=== PATIENT | female | born 1985 | race American Indian/Alaskan Native ===

== ENCOUNTER 2016-11-18 10:58 | Emergency (ER) | payer MEDICAID ==
[2016-11-18 12:08] VITALS: BP 135/90
--- NOTE | 2016-11-20 00:59 | ED Elopement Review ---
ED Pt Elopement review - Call Back decision Pt Call Back Decision: Pt to F/U with PMD
== END 2016-11-18 22:10 | disposition left against medical advice (07) ==
LOC: ED 10:58
DX: R10.9 Unspecified abdominal pain (principal); R11.2 Nausea with vomiting, unspecified; R19.7 Diarrhea, unspecified; Z53.21 Procedure and treatment not carried out due to patient leaving prior to being seen by health care provider

== ENCOUNTER 2017-05-11 10:24 | Emergency (ER) | payer MEDICAID ==
[2017-05-11 11:06] LABS: Eosinophils % (Auto) 0.6 % (0.0-4.3); Hematocrit 36.9 % (30.3-42.9); Hemoglobin 12.5 gm/dl (10.1-14.3); Mean Corpuscular HGB Conc 34 % (30-34); Mean Corpuscular Hemoglobin 33 pg (28-32); Mean Corpuscular Volume 97 fl (79-97); Platelet Count 236 K/mm3 (140-440); Red Blood Count 3.82 M/mm3 (3.65-5.03); Red Cell Distribution Width 13.3 % (13.2-15.2); White Blood Count 5.6 K/mm3 (4.5-11.0)
[2017-05-11 11:26] LABS: Alanine Aminotransferase 17 units/L (7-56); Albumin 4.4 g/dL (3.9-5); Albumin/Globulin Ratio 1.4 %; Alkaline Phosphatase 57 units/L (35-129); Anion Gap 16 mmol/L; BUN/Creatinine Ratio 21.11; Blood Urea Nitrogen 19 mg/dL (7-17); Calcium 8.6 mg/dL (8.4-10.2); Carbon Dioxide 22 mmol/L (22-30); Chloride 106.4 mmol/L (98-107); Glucose 95 mg/dL (65-100); Lipase 81 units/L (13-60); Potassium 4.5 mmol/L (3.6-5.0); Sodium 140 mmol/L (137-145); Total Protein 7.5 g/dL (6.3-8.2)
[2017-05-11 11:33] LABS: Bacteria,Urine 1+ /HPF (Negative); Bilirubin,Urine NEG (Negative); Blood,Urine NEG (Negative); Ketones,Urine NEG (Negative); Leukocyte Esterase,Urine TR (Negative); Mucus,Urine FEW /HPF; Nitrite,Urine NEG (Negative); Protein,Urine <15 mg/dL mg/dL (Negative); RBC,Urine < 1.0 /HPF (0.0-6.0); Urobilinogen,Urine < 2.0 mg/dL (<2.0)
[2017-05-11] MEDS ORDERED: ZOFRAN IV ONE (11:33)
[2017-05-11] MEDS ORDERED: DILAUDID IV ONE ×2 (11:33→13:07)
[2017-05-11] MEDS ORDERED: NACL 0.9% 1000 ML 1,000 ML IV ONE (11:33)
--- NOTE | 2017-05-11 11:39 | Emergency Department Report ---
HPI - General Chief Complaint: Abdominal Pain Time Seen by Provider: 05/11/17 11:19 - HPI HPI: 31 yo AA F presents to the ED via EMS from home with the complaint of a 2 day history of upper abdominal pain, nausea and vomiting. The patient says she has a history of chronic pancreatitis. She says she has had multiple CT imaging, MRCP, and sees a general surgeon and was told "there is nothing that can be done." She denies any recent alcohol consumption or any particular "bad" foods. She has taken some Tylenol for pain without any relief. No recent travel or sick contacts at home. She also has a hx of kidney and gallstones. ED Past Medical Hx - Past Medical History Hx Hypertension: No Hx Kidney Stones: Yes Hx Psychiatric Treatment: Yes (ptsd) Additional medical history: CHRONIC IDIOPATHIC PANCREATITIS. GALLSTONES - Surgical History Hx Appendectomy: Yes Additional Surgical History: hysterectomy; x 2 - Social History Smoking Status: Current Every Day Smoker Substance Use Type: None - Medications Home Medications: Home Medications Medication Instructions Recorded Confirmed Last Taken Type Lipase/Protease/Amylase [Gwendolyn Shine 1 each PO DAILY 05/11/17 05/11/17 05/11/17 History 12,000 Units] Ondansetron [Zofran Odt] 4 mg PO Q8H PRN #10 tab.rapdis 05/11/17 Unknown Rx ED Review of Systems ROS: Stated complaint: ABD PAIN/VOMITING Other details as noted in HPI Comment: All other systems reviewed and negative Constitutional: denies: chills, fever Eyes: denies: eye pain, eye discharge, vision change ENT: denies: ear pain, throat pain Respiratory: denies: cough, shortness of breath, wheezing Cardiovascular: denies: chest pain, palpitations Gastrointestinal: abdominal pain, nausea, vomiting Genitourinary: denies: urgency, dysuria, discharge Musculoskeletal: denies: back pain, joint swelling, arthralgia Skin: denies: rash, lesions Neurological: denies: headache, weakness, paresthesias Physical Exam - Physical Exam Vital Signs: Vital Signs 05/11/17 10:31 Temperature 98.5 F Pulse Rate 74 Respiratory 16 Rate Blood Pressure 134/98 O2 Sat by Pulse 100 Oximetry Physical Exam: GENERAL: The patient is well-developed well-nourished. HENT: Normocephalic. Atraumatic. Patient has moist mucous membranes. EYES: Extraocular motions are intact. Pupils equal, round and reactive to light. NECK: Supple. Trachea is midline. CHEST/LUNGS: Clear to auscultation. There is no respiratory distress noted. HEART/CARDIOVASCULAR: Regular. There is no tachycardia. There is no gallop rub or murmur. ABDOMEN: Abdomen is soft. There is tenderness palpation to the upper quadrants of the abdomen. No guarding rebound tenderness. Patient has normal bowel sounds. There is no abdominal distention. SKIN: There is no rash. There is no edema. There is no diaphoresis. NEURO: The patient is awake, alert, and oriented. The patient is cooperative. The patient has no focal neurologic deficits. The patient has normal speech. MUSCULOSKELETAL: There is no tenderness or deformity. There is no limitation range of motion. There is no evidence of acute injury. ED Course Vital Signs 05/11/17 10:31 Temperature 98.5 F Pulse Rate 74 Respiratory 16 Rate Blood Pressure 134/98 O2 Sat by Pulse 100 Oximetry ED Medical Decision Making - Lab Data Result diagrams: 05/11/17 10:40 05/11/17 10:40 - Radiology Data Radiology results: report reviewed ULTRASOUND ABDOMEN LIMITED INDICATION: Upper abdominal pain. History of pancreatitis. COMPARISON: 05/18/2015 ultrasound. FINDINGS: Right upper quadrant ultrasound demonstrates unremarkable liver. No gallstones or pericholecystic fluid, though mild gallbladder sludge now suspected. Gallbladder wall thickness is 1.7 mm. Negative sonographic Gunter's sign. Common bile duct is 2.4 mm. Imaged pancreas, nonaneurysmal abdominal aorta, IVC and right kidney appear within normal limits. CONCLUSION: Mild gallbladder sludge without acute right upper quadrant sonographic abnormality, as described. - Medical Decision Making 31-year-old female presents with upper abdominal pain, nausea and vomiting. She says she has a history of chronic pancreatitis and follows with a general surgeon. Labs are mostly unremarkable except for slight elevation in the lipase. Patient has a history of a hysterectomy and therefore is not . Ultrasound shows some gallbladder sludge but otherwise no signs of cholecystitis, pancreatitis or any other acute intra-abdominal pathology. She was given some pain medication here and nausea medication and appears improved. Vital signs stable throughout ED course. I looked her up on the [employer] prescription monitoring system and she appears to get narcotic pain medication filled about every 1-2 weeks including getting 60 of 10 mg [place] filled on and therefore I will not be filling any narcotic pain medication for home. She's been encouraged to follow up with her general surgeon and her primary care physician in the next few days but has been encouraged to return to the ER for any worsening or symptoms or any acute distress. - Differential Diagnosis cholelithiasis, cholecystitis, pancreatitis, colitis, gastritis Critical Care Time: No Critical care attestation.: If time is entered above; I have spent that time in minutes in the direct care of this critically ill patient, excluding procedure time. ED Disposition Clinical Impression: Gallbladder sludge, Biliary colic Abdominal pain Qualifiers: Abdominal location: upper abdomen, unspecified Qualified Code(s): R10.10 - Upper abdominal pain, unspecified Chronic pancreatitis Qualifiers: Pancreatitis type: unspecified pancreatitis type Qualified Code(s): K86.1 - Other chronic pancreatitis Disposition: DC-01 TO HOME OR SELFCARE Is pt being admited?: No Condition: Stable Instructions: Biliary Colic (ED), Acute Nausea and Vomiting (ED), Abdominal Pain (ED) Additional Instructions: Please follow-up with your primary care physician and your general surgeon as soon as possible. Return to the emergency Department with any worsening of your symptoms or any acute distress. Prescriptions: Ondansetron [Zofran Odt] 4 mg PO Q8H PRN #10 tab.rapdis PRN Reason: Nausea Referrals: PRIMARY CARE, [Primary Care Provider] - [facility] Time of Disposition: 13:10
[2017-05-11 12:50] VITALS: BP 136/82
--- NOTE | 2017-05-11 12:57 | Ultrasound Report ---
ULTRASOUND ABDOMEN LIMITED INDICATION: Upper abdominal pain. History of pancreatitis. COMPARISON: 05/18/2015 ultrasound. FINDINGS: Right upper quadrant ultrasound demonstrates unremarkable liver. No gallstones or pericholecystic fluid, though mild gallbladder sludge now suspected. Gallbladder wall thickness is 1.7 mm. Negative sonographic Gunter's sign. Common bile duct is 2.4 mm. Imaged pancreas, nonaneurysmal abdominal aorta, IVC and right kidney appear within normal limits. CONCLUSION: Mild gallbladder sludge without acute right upper quadrant sonographic abnormality, as described. Thank you for the opportunity to participate in this patient's care.
== END 2017-05-11 13:25 | disposition home or self-care (01) ==
LOC: ED 10:24
DX: K86.1 Other chronic pancreatitis (principal); K82.9 Disease of gallbladder, unspecified; K80.50 Calculus of bile duct without cholangitis or cholecystitis without obstruction; F17.200 Nicotine dependence, unspecified, uncomplicated
CPT/HCPCS: 36415; 76705; 80053; 81001; 83690; 85025; 96361; 96374; 96375; 96376; 99284; J1170; J2405; J7030